=== PATIENT | female | born 1985 | race Caucasian/White ===

== ENCOUNTER 2019-10-26 05:49 | Day surgery (SDC) | payer BC, SELFPAY ==
[2019-10-26 06:36] VITALS: BP 122/68; PULSE 72; RESP 15; TEMP 36.7; O2SAT 99; BMI 34.2
[2019-10-26] MEDS: Lactated Ringers 1,000 ML 100 ML IV (06:47)
[2019-10-26] MEDS: Cefazolin 2 GM in 0.9% Normal Saline 100 ML IV (07:33)
--- NOTE | 2019-10-26 07:45 | RAD_ITS ---
STUDY: X-RAY - LEFT FOOT CLINICAL: Female, 34 years old. LEFT BUNION CORRECTION WITH FUSION -- TECHNIQUE: 3 intraoperative view(s) of the foot. Flouro time 49.1seconds COMPARISON: None. FINDINGS: Intraoperative fluoroscopy utilized. There is fixation plate and screws at the first tarsometatarsal articulation . RAD/Foot min 3 Views IMPRESSION: Intraoperative fluoroscopy. Electronically Signed: Estuardo Duncan MD at 10:33 EDT , Service support ,
[2019-10-26] MEDS: Bupivacaine Mpf 0.5% 30 ML VIAL (08:00)
--- NOTE | 2019-10-26 09:52 | DCINST_ITS ---
Discharge Diet: No Restrictions Discharge Activity: Use Walker, Use Crutches Weight Bearing Status: No weight bearing - left Keep extremity elevated above heart level: Left Leg Call your doctor if your incision/area has: Continuous Slow Oozing, Sudden Increased Bleeding, Increased Pain/ Swelling, Increased Redness, Foul Smelling Discharge, Swelling at the incision site Call your doctor if you observe: Fever of 101 or Higher, Calf discomfort, Uncontrolled pain Cleanse incision/area with: Keep Dressing Clean & Dry Allergies/Adverse Reactions: Allergies Sulfa (Sulfonamide Antibiotics) Allergy (Verified 10/26/19 06:35) Hives sulfamethoxazole [From Bactrim] Allergy (Verified 10/26/19 06:35) Hives trimethoprim [From Bactrim] Allergy (Verified 10/26/19 06:35) Hives Medications to take at Discharge Atorvastatin Calcium [Lipitor] 20 mg PO DAILY 10/19/19 Fluoxetine HCl [Prozac] 60 mg PO DAILY 10/19/19 Metoprolol Tartrate [Lopressor (Beta Param)] 25 mg PO DAILY 10/19/19 Hydrocodone/Acetaminophen [Bly 7.5-325 Tablet] 1 ea PO Q6H PRN PRN 7 Days #28 tab 10/23/19 The following prescriptions were given: Hydrocodone/Acetaminophen [Bly 7.5-325 Tablet] 1 ea PO Q6H PRN PRN 7 Days #28 tab PRN Reason: Pain Score 6-10/10 Transmission Status: Received by [id number] Primary Care Physician: TOBY HOWE [Other] Test Results: Test results from this visit will be discussed in further detail at your follow- up appointment, if applicable. Please Follow Up With: Christine Rangel DPM When: [facility]. Call [phone] if questions or concerns Proposed Discharge Date: 10/26/19
--- NOTE | 2019-10-26 09:53 | RAD_ITS ---
STUDY: X-RAY - LEFT FOOT CLINICAL: Female, 34 years old. S/P LAPIDUS BUNIONECTOMY TECHNIQUE: 3 view(s) of the foot. COMPARISON: None. FINDINGS: Normal talus, calcaneus, and tarsal bones. Postoperative change with fixation plate and screws at the first tarsometatarsal articulation. Normal metatarsophalangeal joint of the great toe. Normal tibial and fibular sesamoid bones. Normal interphalangeal joint of the great toe. Normal phalanges of the great toe. Normal second through fifth metatarsophalangeal joints. Normal interphalangeal joints and phalanges of the lesser toes. Postoperative changes in the soft tissues. There is bandage. RAD/Foot min 3 Views IMPRESSION: Postoperative change with fusion at the first tarsometatarsal articulation. Electronically Signed: Estuardo Duncan MD at 14:21 EDT , Service support ,
--- NOTE | 2019-10-26 09:55 | PCM.OPRPT ---
Problem List (1) Left foot pain Status: Acute (2) Hallux valgus (acquired), left foot Status: Acute Report of Operation Date of Procedure: 10/26/19 Pre-Operative Diagnosis: painful hallux valgus left Post-Operative Diagnosis: painful hallux valgus left Surgery/Procedure Performed:: left foot bunionectomy correction including arthrodesis of first metatarsal cuneiform arthrodesis with internal fixation Description of Surgical Findings:: Hemostasis: Well-padded pneumatic left thigh tourniquet, 83 minutes, 315 mmHg Complications: None Materials: One Arthrex standard plantar Lapidus place with two 4.0 cancellus screws, one 3.5 cortical screw, two 3.5 locking screws, 2-0 and 3-0 Vicryl, 5-0 nylon Specimens: None The patient tolerated the procedure and anesthesia well. She was transported to the PACU with vital signs stable and vascular status intact to the left lower extremity. She will be transferred home upon continued stability. Her postoperative x-rays were reviewed prior to leaving the operating room which demonstrated reduction of her bunion deformity and well approximation of the arthrodesis site with internal fixation in place in the desired trajectory and position. Her postoperative orders were entered electronically. computer network and systems engineer: Tessa - Surgeon: Christine Rangel DPM Type of Anesthesia:: General, Local - preoperative: one-to-one mixture of 1% lidocaine plain and 0.5% Marcaine plain administered in typical ankle block fashion, 18 cc Postoperative: 10 cc of 0.5% Marcaine plain administered in typical first ray block and local infiltrative manner Specimen's removed: none Estimated Blood Loss (mL): <150 mL Description of Procedure: Indications: This 34-year-old female with significant past medical history of depression, hyperlipidemia, and hypertension complains of progressive left foot pain in which she is unable to perform her daily activities. She has significant pain. She has failed conservative care including shoe gear modification, NSAIDs, home exercise program, anti-inflammatory, padding, and offloading. Preoperative x-rays demonstrate increased intermetatarsal angle, lateral hallux deviation, prominent first metatarsal head medial eminence with hypertrophic changes. Clinically, she has pain palpation to the bunion site and hypermobility of the first ray. The preoperative indication, planned procedure, possible benefits, risk, complications, and anticipated healing time management were discussed in detail with patient. She understands and elects to proceed with surgery at this time. Informed surgical consent and limb were signed. She understands risk and complications include but are not limited to following: pain, swelling, scarring, need for further surgery, hardware failure, recurrence, blood clot, allergic reaction, chronic pain, over or under correction, loss of limb, function, life, loss of sensation. She understands COVID-19 is a current situation and her pain is preventing her from performing her daily activities. She understands the inherent risks with the virus being present in the community and understands significant precautions are being taken to prevent communicable spread during her hospital session. She therefore elects to proceed forward with the procedure at this time. Preoperative clearance with Porsche Castle CNP including history and physical exam were also reviewed. She also did not have any gross abnormalities with her preoperative diagnostic data including CBC and CMP. Smoking cessation was also reviewed with her and encouraged. She understands this can significantly impair her healing if she continues to smoke during the postoperative time frame. I answered all of her questions. Procedure in detail: The patient was transported to the operating room via cart and placed on the operating table in the supine position. Final verification the patient, surgery, limb designation was performed via the timeout procedure. IV antibiotics were administered preoperatively. The anesthesia team initiated general anesthesia. I administered the preoperative local anesthetic. A well padded left thigh tourniquet was placed in a well padded manner. The left lower extremity was prepped and draped in the usual aseptic manner. An Esmarch bandage was used to exsanguinate the left limb and surgery began the following: Attention was first directed at the medial aspect of the first metatarsal cuneiform articulation area in which a medial incision was made through the skin. Blunt dissection was performed down to the interface between the abductor hallucis muscle belly and plantar first metatarsal. Care was taken to identify, protect, and retract all neurovascular structures at this point and throughout the remainder of surgery. The desired interface was identified and carefully dissected. The first metatarsocuneiform articulation was identified clinically and confirmed with intraoperative fluoroscopy. A 15 blade, osteotomes, and curettes were used to denude the articular surface down to bleeding healthy subchondral bone and the remaining bone surfaces were mobilized to allow for correction. A k-wire and tenaculum were placed with the first metatarsal now with varus rotation correction achieved. Sesamoid reduction, decreased first intermetatarsal angle, and [id number] approximation was confirmed with intraoperative fluoroscopy. A plantar Arthrex Lapidus plate was fashioned and temporary held in place with wires and BB taks. The plate was secured distally prior to compression screw application. Care was taken to remove all temporary fixation while the compression was applied. An additional cancellus 4.0 screw was applied across the arthrodesis site as well with standard AO fixation technique to aid in solid fixation and deformity correction. Lastly, the plate was secured proximally with cortical and locking screws. The unit was clinically and radiographically stressed and appeared to be stable as one solid unit with maintained deformity correction. The reduction was maintained and all screws and hardware placement maintained the proper placement and desired trajectory. Next, attention was directed to the first metatarsophalangeal joint in which the remaining bunion deformity was evaluated. The previous incision was extended distally. Again blunt dissection was performed and care was taken to avoid neurovascular structures. The first metatarsal head was exposed medially and a sagittal saw was used to resect the medial and dorsal eminence taking caution to avoid disrupting the sagittal groove. Capsulorrhaphy was additionally performed. This allowed additional correction of the hallux to be placed in a more rectus toe position. The hallux now achieved a rectus corrected position and an Anthony osteotomy was not deemed necessary at this time. The tourniquet was deflated at this time and brisk capillary refill time was noted to all digits of the right foot. No pulsatile bleeding was noted. Deep layered closure was achieved with Vicryl taking care to maintain a balanced tissue closure. The skin was next reapproximated with nylon suture with horizontal and simple suture techniques. Clinically, the fixation was solid and the deformities were reduced. Post operative injection was administered at this time as noted. A postoperative dressing was applied including Betadine soaked gauze. This was applied with splintage technique. This was further covered with 4 x 4 gauze, Kerlix, abdominal pad, and [place] wrap. Next, a well-padded posterior mold was applied with the surgical limb in a rectus position and secured with MODESTO wrap. After procedure: The patient tolerated the procedure and anesthesia well. She was transferred to the PACU with vital signs stable and vascular status intact to the left lower extremity. She was advised to maintain a strict nonweightbearing status. She was advised to ice and elevate for pain and inflammation control. She was also provided with a postoperative pain medication prescription, [place]. She was advised on safe and proper use. She was advised to keep her splint and dressing clean, dry, and intact until follow-up next week. She has assistive devices to help her maintain a nonweightbearing status. Postoperative x-rays were reviewed as noted. She [facility]. Christine Rangel DPM, [facility] - Complications none - Admit VTE Documentation VTE Present on Admission: No VTE Mechan Device Prophylaxis: SCD's VTE Pharm Prophylaxis ordered?: No Reason prophylaxis not ordered:: Procedure Not Indicated
[2019-10-26 10:01] VITALS: BP 118/68; BP 122/68; PULSE 85; RESP 24; TEMP 36.6; O2SAT 99
[2019-10-26 10:15] VITALS: BP 107/65; BP 122/68; PULSE 80; RESP 14; O2SAT 94
[2019-10-26 10:28] VITALS: BP 115/71; BP 122/68; PULSE 86; RESP 16; TEMP 36.6; O2SAT 96
[2019-10-26 11:17] VITALS: BP 108/76; BP 122/68; PULSE 78; RESP 16; TEMP 35.6; O2SAT 96
== END 2019-10-26 11:24 | disposition home or self-care (01) ==
LOC: SDC 05:50 → AC 05:51
PROVIDERS: Referring Provider Podiatrist; Visit Provider Podiatrist
PROC: (CPT 28292; principal; 2019-10-26 07:15)
DX: M20.12 Hallux valgus (acquired), left foot (principal); E78.5 Hyperlipidemia, unspecified; F32.9 Major depressive disorder, single episode, unspecified; F41.9 Anxiety disorder, unspecified; F17.200 Nicotine dependence, unspecified, uncomplicated; Z11.59 Encounter for screening for other viral diseases; Z79.899 Other long term (current) drug therapy
CPT/HCPCS: 28297; 73630; 76000; 87635; C1713; G2023; J7120; J2405; U0004